=== PATIENT | male | born 1970 | race African-American/Black ===

== ENCOUNTER 2023-02-08 09:59 | Outpatient (CLI) | payer BC ==
[2023-02-08 11:40] LABS: Bilirubin Neg (Negative); Blood, Urine Negative (Negative); Clarity Clear (Clear); Glucose, Urine (Dipstick) Normal (Negative); Ketone, Urine Negative (Negative); Leukocyte Negative (Negative); Nitrite Negative (Negative); Protein, Urine (Dipstick) Negative (Neg-Trace); Urobilinogen Normal mg/dL (Less than 2)
[2023-02-08 11:44] LABS: Hemoglobin 14.1 g/dL (13.5-17.5); Mean Corpuscular HGB CONC 31.2 g/dL (32.0-36.0); Mean Corpuscular Hemoglobin 24.2 pg (27.0-33.0); Mean Corpuscular Volume 77.7 fl (81.2-95.1); Platelet Count 195 10x3/uL (150-450); RBC Distribution Width 17.9 % (11.5-14.5); Red Blood Cell (RBC) Count 5.82 10x6/uL (4.32-5.72)
[2023-02-08 12:01] LABS: PTT 29.6 sec (22.0-33.0); Prothrombin Time 11.2 sec (9.5-12.1)
[2023-02-08 12:11] LABS: Anion Gap 12 mmol/L (10-20); BUN (Urea Nitrogen) 9 mg/dL (8.4-25.7); Calc. Creatinine Clearance 0 mL/min (70-130); Calcium 9.1 mg/dL (7.8-10.44); Carbon Dioxide 27 mmol/L (22-29); Chloride 103 mmol/L (98-107); Estimated GFR 100; Glucose 87 mg/dL (70-105); Sodium 138 mmol/L (136-145)
[2023-02-08 12:15] LABS: Bacteria/HPF None Seen HPF (None Seen); RBC/HPF 0-3 HPF (0-3); Squamous Epithelial 0-3 HPF (0-3); WBC/HPF 0-3 HPF (0-3)
== END 2023-02-08 10:00 | disposition home or self-care (01) ==
LOC: LABBT 09:59
PROVIDERS: ATTEND Urology
DX: Z01.818 Encounter for other preprocedural examination (principal); Z12.5 Encounter for screening for malignant neoplasm of prostate; N40.1 Benign prostatic hyperplasia with lower urinary tract symptoms; R39.12 Poor urinary stream; R39.13 Splitting of urinary stream
CPT/HCPCS: 80048; 81001; 85027; 85610; 85730; 87086

== ENCOUNTER 2023-02-21 06:04 | Day surgery (SDC) | payer BC ==
[2023-02-08 10:36] VITALS: BMI 28.4
[2023-02-21] MEDS ORDERED: Propofol 500 MG/50 ML VIAL ONE (06:53)
[2023-02-21] MEDS ORDERED: Levofloxacin 500 mg/D5W 100 ml Premix Bag ONE (07:11)
[2023-02-21] MEDS ORDERED: Midazolam HCl 2 mg/2 ml Vial ONE (08:28)
[2023-02-21] MEDS ORDERED: fentaNYL 50 mcg/mL 1 mL Vial ONE (08:40)
[2023-02-21] MEDS ORDERED: Famotidine/PF 20 mg/2ml Vial ONE (08:40)
[2023-02-21] MEDS ORDERED: Ondansetron PF 4 MG/2 ML Vial ONE ×2 (08:40→08:53)
[2023-02-21] MEDS ORDERED: Ketorolac Tromethamine 30 MG/ML VIAL ONE (08:53)
[2023-02-21] MEDS ORDERED: Lidocaine 1% PF 5 ML VIAL ONE (08:53)
[2023-02-21] MEDS ORDERED: Phenazopyridine HCl 100 MG TAB ONE (09:41)
[2023-02-21] MEDS ORDERED: Oxybutynin 5 MG TAB ONE (09:41)
== END 2023-02-21 10:53 | disposition home or self-care (01) ==
LOC: SDC 06:04
PROVIDERS: ATTEND Urology
PROC: 0T7D8DZ Dilation of Urethra with Intraluminal Device, Via Natural or Artificial Opening Endoscopic (ICD-10-PCS; principal; 2023-02-21)
DX: N40.1 Benign prostatic hyperplasia with lower urinary tract symptoms (principal); R39.11 Hesitancy of micturition; R39.12 Poor urinary stream; R39.13 Splitting of urinary stream; I10 Essential (primary) hypertension; Z79.899 Other long term (current) drug therapy
CPT/HCPCS: 93005; 93010; J1885; J1956; J2250; J2405; J2704; J3010; L8699; S0028